=== PATIENT | female | born 1960 | race Caucasian/White ===

== ENCOUNTER → 2021-02-27 10:41 | Outpatient (CLI) | payer OTHER, SELFPAY ==
[2021-02-27 12:16] LABS: Absolute Lymphocyte Count 1.39 X10^3/uL (0.83-4.51); Absolute Neutrophil Count 3.4 X10^3/uL (2.0-7.7); Basophil# 0.05 X10^3/uL; Basophil% 0.9 % (0-1); Eosinophil# 0.08 X10^3/uL; Eosinophils% 1.5 % (0-5); Hematocrit 40.6 % (37-47); Hemoglobin 13.3 g/dL (12.0-15.0); Lymphocyte # 1.39 X10^3/ul (0.83-4.51); Lymphocyte % 25.4 % (19-41); Mean Corp Hgb Conc 32.8 g/dL (32-36); Mean Corpuscular Hgb 29.4 pg (27.0-32.0); Mean Corpuscular Volume 89.6 fL (81-99); Mean Platelet Vol. 10.1 fl (6.2-12.0); Monocyte# 0.59 X10^3/uL; Monocyte% 10.8 % (0-10); NRBC Flagged by Analyzer 0 % (0-5); Neutrophil # 3.36 X10^3/uL (2.7-7.7); Neutrophil % 61.2 % (47-70); Platelet Count 299 K/mm3 (150-450); RBC Distribution Width SD 39.3 fl (35.1-43.9); Red Blood Count 4.53 M/mm3 (4.2-5.4); White Blood Count 5.5 K/mm3 (4.4-11.0)
[2021-02-27 12:30] LABS: PTHIN 27.6 pg/mL (18.4-80.1)
[2021-02-27 12:39] LABS: ALB/GLOB Ratio 1.1 RATIO (0.9-2.4); AST(SGOT) 11 U/L (15-37); Alanine Aminotransfer ALT/SGPT 31 U/L (13-56); Albumin, Serum 4.1 g/dL (3.2-5.0); Alkaline Phosphatase 58 U/L (45-117); Anion Gap 6 (5-15); BUN 20 mg/dL (7-18); BUN/Creat Ratio 17.7 RATIO (10-20); Calcium,Total 9.1 mg/dL (8.5-10.1); Chloride 100 mmol/L (98-107); Creatinine, Serum 1.13 mg/dL (0.55-1.02); EST Glomerular Filtration Rate 53 mL/min (>60); Est Glom Filt Rate - Afr Amer 64 mL/min (>60); Globulin 3.6 g/dL (2.2-4.2); Glucose 91 mg/dL (74-106); Potassium 3.9 mmol/L (3.5-5.1); Protein, Total 7.7 g/dL (6.4-8.2); Sodium Level 137 mmol/L (136-145); T4 Free Direct 1.15 ng/dL (0.76-1.46); Thyroid Stim Hormone (TSH) 2.54 uIU/mL (0.358-3.74)
[2021-02-28 20:38] LABS: Anti-Thyroglobulin AB < 1.0 IU/mL (0.0-0.9); Thyroglobulin, Serum Qt. 36.5 ng/mL (1.5-38.5); Thyroid Peroxidase AB 14 IU/mL (0-34)
== END ==
PROVIDERS: PCP Internal Medicine; Referring Provider Physician Assistant; Visit Provider Physician Assistant
DX: L80 Vitiligo (principal); D18.01 Hemangioma of skin and subcutaneous tissue
CPT/HCPCS: 36415; 80053; 83970; 84432; 84439; 84443; 85025; 86376; 86800

== ENCOUNTER → 2024-04-06 | Outpatient (CLI) | payer OTHER, SELFPAY ==
--- NOTE | 2024-04-06 | EGD_PTH ---
PATIENT: TREVER ALLISON LOC: [facility] U#:[id number] AGE/SX: 63/F ROOM: RE04/06/[address]: Dr. Robinson Rossi MD : 1960 BED: DIS: 04/06/2024 SPEC #: [id number] RECD: 04/07/24 08:21 STATUS: ERI RECyndi #: [id number] BOBBY: 04/06/24 00:[address]: Robinson Rossi DEPT: SURGICAL PATHOLOGY RECD BY: Osiel Ram ENTERED: 04/07/24 08:23 SP TYPE: EGD BIOPSY OT DR: Dr. Lesia Barragan MD Tissues: A - Duodenum, NOS B - Gastric mucous membrane C - Gastric mucous membrane E - Esophagus, NOS F - Esophagus, NOS Procedures: Surgery Specimen Level IV HEADER OPERATION: EGD PRE-OP DIAGNOSIS: Epigastric pain, heartburn TISSUE SUBMITTED: A- Duodenal biopsy, B- Antrum biopsy, C- Fundic gland polyp, D- Distal esophagus biopsy, E- Mid esophageal biopsy MICROSCOPIC DIAGNOSIS A- Duodenal biopsy: Fragments of duodenal mucosa, no pathologic diagnosis. B- Antrum biopsy: Mild gastritis. See microscopic description and comment. C- Fundic gland polyp, biopsy: Fundic gland polyp. D- Distal esophagus biopsy: Fragments of squamous mucosa with congestion and mild chronic inflammation. E- Mid esophageal biopsy: Fragments of benign squamous epithelium. 04/10/2024 COMMENT B. The results of immunohistochemistry for Helicobacter pylori will be reported separately ([id number]). MICROSCOPIC DESCRIPTION Slides are reviewed. The specimen shows fragments of gastric mucosa with chronic inflammatory cell infiltrates in the lamina propria consisting of lymphocytes and plasma cells, consistent with mild chronic gastritis. GROSS DESCRIPTION A. Received in fixative is one container labeled with the patient's name and designated Duodenal biopsy. The specimen consists of multiple irregular fragments of light zheng soft tissue that in aggregate measure 0.5 x 0.5 x 0.1 cm. The specimen is totally submitted in one cassette. B. Received in fixative is one container labeled with the patient's name and designated Antral biopsy. The specimen consists of one irregular fragment of light zheng soft tissue that measures 0.2 x 0.1 x 1.0 cm. The specimen is totally submitted in one cassette. C. Received in fixative is one container labeled with the patient's name and designated Fundic gland polyp. The specimen consists of one irregular fragment of light zheng soft tissue that measures 0.2 x 0.1 x 0.5 cm. The specimen is totally submitted in one cassette. D. Received in fixative is one container labeled with the patient's name and designated Distal esophagus biopsy. The specimen consists of multiple irregular fragments of light zheng soft tissue that in aggregate measure 0.2 x 0.1 x 1.0 cm. The specimen is totally submitted in one cassette. E. Received in fixative is one container labeled with the patient's name and designated Mid esophageal biopsy. The specimen consists of two irregular fragment of light zheng soft tissue that in aggregate measure 0.2 x 0.1 x 0.5 cm. The specimen is totally submitted in one cassette. 04/07/2024 TC:3 CPT:90160q7
--- NOTE | 2024-04-06 | IMM_PTH ---
PATIENT: TREVER ALLISON LOC: [facility] U#:[id number] AGE/SX: 63/F ROOM: RE04/06/[address]: Dr. Robinson Rossi MD : 1960 BED: DIS: 04/06/2024 SPEC #: [id number] RECD: 04/07/24 09:53 STATUS: ERI REQ #: [id number] BOBBY: 04/06/24 00:[address]: Robinson Rossi DEPT: IMMUNOHISTOCHEMISTRY RECD BY: Osiel Ram ENTERED: 04/07/24 09:53 SP TYPE: IMMUNO OTHR DR: Dr. Lesia Barragan MD Tissues: B - Gastric mucous membrane Procedures: H Pylori (initial) PHYSICIAN & INSTITUTION [place] [id number] SPECIMEN INFORMATION: Tissue Source: B- Antrum biopsy Clinical Info: Epigastric pain, heartburn Specimen Number: [id number] CPT code: 49604 METHODOLOGY: Deparaffinized sections of prefer/formalin-fixed tissue or PAP/DQ stained slides are incubated with monoclonal/polyclonal antibodies/oligonucleotide probes. Localization is made via biotin free immunoperoxidase method. Appropriate controls are performed and reacted as expected. Results on target cell population are indicated in the following table: RESULTS: ANTIBODY / CLONE RESULT Block B H Pylori (polyclonal) negative These tests were developed and their performance characteristics determined by [facility]. They may not have been cleared or approved by the U.S. Food and Drug Administration. The FDA has determined that such clearance or approval is not necessary. The above immunohistochemical/dualISH markers are ordered and reviewed by the Pathologist. INTERPRETATION: B. Antrum, biopsy: Negative for Helicobacter pylori organisms. SJ:emelyn 04/11/24
== END | disposition home or self-care (01) ==
LOC: LABSPEC 15:21
PROVIDERS: PCP Internal Medicine; Referring Provider Surgery; Visit Provider Surgery
DX: K29.70 Gastritis, unspecified, without bleeding (principal); K31.7 Polyp of stomach and duodenum
CPT/HCPCS: 88305; 88342

== ENCOUNTER 2025-03-26 17:37 | Emergency (ER) | payer OTHER, SELFPAY ==
[2025-03-26 17:38] VITALS: BP 138/67; PULSE 76; RESP 18; TEMP 36.1; O2SAT 99; BMI 22.8
--- NOTE | 2025-03-26 18:12 | EKG12_ITS ---
Test Reason : DYSRHYTHMIA Blood Pressure : */* mmHG Vent. Rate : 67 BPM Atrial Rate : 67 BPM P-R Int : 146 ms QRS Dur : 80 ms QT Int : 434 ms P-R-T Axes : 68 12 63 degrees QTcB Int : 458 ms Normal sinus rhythm Possible Left atrial enlargement Borderline ECG Confirmed by Jeremy Escalante ([id number]), news copy editor KINGA TEMPLETON ([id number]) on 03/28/2025 11:34:28 AM Referred By: ER Confirmed By: Jeremy Escalante
--- NOTE | 2025-03-26 18:12 | CT_ITS ---
PROCEDURE: ABDOMEN/PELVIS W IV CONT ONLY 03/26/2025 REASON FOR EXAM: RUQ, RIGHT FLANK PAIN TECHNIQUE: Procedure Code: [id number] Modality: CT Procedure: ABDOMEN/PELVIS W IV CONT ONLY Coronal and Sagittal reconstruction series were provided. CONTRAST: 100 cc of Isovue 370 One or more dose reduction techniques were used (e.g., Automated exposure control, adjustment of the mA and/or kV according to patient size, use of iterative reconstruction technique. COMPARISON: None available. FINDINGS: Lung bases: Unremarkable. Liver: Normal size. No mass. Gallbladder: Unremarkable. No biliary ductal dilatation. Spleen: Normal size. Pancreas: Normal size without evidence of mass surrounding inflammation or ductal dilation. Adrenals: No adrenal masses. Kidneys: Left renal cyst measures 9 mm. No renal calculi or hydronephrosis bilaterally. Bladder: Unremarkable. Reproductive Organs: Prior hysterectomy. Adnexal regions are unremarkable. Bowel: Colonic diverticulosis without diverticulitis. No bowel obstruction. Appendix: Normal. Lymph nodes: Unremarkable. Vasculature: The abdominal aorta and IVC are normal. Peritoneum / Retroperitoneum: No free fluid or air. Bones: Degenerative changes of the spine. No acute fractures. CT/Abdomen/Pelvis W IV Cont ONLY IMPRESSION: NO ACUTE FINDINGS AT THE ABDOMEN OR PELVIS ON CONTRAST-ENHANCED CT. Reading Location[facility]
--- NOTE | 2025-03-26 18:12 | US_ITS ---
PROCEDURE: US GALLBLADDER 03/26/2025 REASON FOR EXAM: PAIN TECHNIQUE: Procedure Code: USGB Modality: US Procedure: GALLBLADDER COMPARISON: Abdominal CT same day 03/26/2025. FINDINGS: Liver: Grossly normal in size with homogeneous echotexture. Mild steatosis. Gallbladder: Normal. No stones, sludge, wall thickening or tenderness. Common bile duct: Normal measuring up to 0.3 cm diameter. Pancreas: Visualized portions are sonographically unremarkable. Other: Visualized right kidney is unremarkable. No right upper quadrant ascites. US/Gallbladder IMPRESSION: No cholelithiasis or biliary ductal dilatation. Mild hepatic steatosis. Reading Location: [id number]
--- NOTE | 2025-03-26 18:15 | EDS_ITS ---
HPI HPI - GI History of Present Illness Chief Complaint: Abd Pain Narrative Narrative: Patient is a 64-year-old female presenting to the emergency department for right upper quadrant pain that is radiating to her right sided back. Patient states that she has had the pain for the past week. She states that it is constant. She endorses some nausea with no vomiting. Denies chest pain or shortness of breath. Denies any fever or chills. States she has had diarrhea but this is chronic for her. She denies any dysuria or hematuria. States that she had a kidney stone in the past and this does not feel similar. States that the right upper quadrant pain is unchanged with food. Unchanged with positional changes. Went to urgent care prior to this and they got a urine sample that showed blood and sent him here for evaluation. [facility] Medical History Back pain Home Medications ?Medication ?Instructions ?Recorded ?Last Taken ?Type Lactobacillus acidophilus 20 100 mmu cells PO DAILY 03/26/25 History billion cell capsule (Florajen Acidophilus) citalopram 20 mg tablet 20 mg PO DAILY 03/26/2512/11 History cyclosporine 0.05 % eye drops in a 1 drp ophthalmic (e ye) BID 03/26/25 03/26/25 History dropperette (Restasis) estradiol 10 mcg vaginal tablet 10 mcg vaginal .COMPLE X 03/26/25 03/24/25 History fexofenadine 180 mg tablet 180 mg PO DAILY PRN allergi es 03/26/25 Unknown History (Bre Allergy) fluticasone propionate 50 2 spray intranasal DAILY 12/1103/26/25 History mcg/actuation nasal spray,suspension (Allergy Relief (fluticasone)) multivit-iron 18 mg-folic acid 400 1 tab PO DAILY 12/1103/26/25 History mcg-calcium 500 mg-minerals tablet (Daily Multiple For Women) pantoprazole 40 mg tablet,delayed 40 mg PO BID 5 03/26/25 History release phenazopyridine 200 mg tablet 200 mg PO TID PRN pain 1 05/27/24 Unknown History rizatriptan 10 mg disintegrating 10 mg PO Q2H PRN migr evy headache 03/26/25 Unknown History tablet triamterene 37.5 1 cap PO DAILY 03/26/25 12/0 12/11 History mg-hydrochlorothiazide 25 mg capsule Allergy/AdvReac Type Severity Reaction Status Date / Time No Known Allergies Allergy Verified 03/26/25 17:39 Social History Smoking Status: Never smoker ROS ROS ED ROS Narrative see HPI EXAM Physical Exam Narrative Exam Narrative: Vital signs: Reviewed General: Alert and orientedx3. No acute distress. Well appearing. Nontoxic. HEENT: Head is normocephalic and atraumatic, sinuses nontender, pupils equal round and reactive. Nares are patent. Oropharynx and throat exams normal. Neck: Supple without lymphadenopathy nontender Cardiovascular: Regular rate and rhythm, no murmurs. No rubs or gallops. Normal S1 and S2 Respiratory: Clear to auscultation bilaterally. No wheezes, rales, rhonchi Abdominal: Soft and nontender to palpation. Negative small sign. Normal bowel sounds. No guarding or rebound. Nonsurgical abdomen. No CVA tenderness to palpation. Extremities: No tenderness. No bruising. Normal range of motion. Normal sensation. Skin: No rash or redness. The rest of the physical exam is unremarkable Const Vital Signs: 03/26/25 17:38 03/26/25 19:38 03/26/25 20:15 Temperature 96.9 F L 97 F L Temperature Source Temporal Pulse Rate 76 80 66 Respiratory Rate 18 16 18 Blood Pressure 138/67 H 122/66 H Blood Pressure Mean 90 84 Pulse Ox 99 100 Oxygen Delivery Method Room Air Room Air MDM MDM MDM Narrative Medical decision making narrative: Patient is a 64-year-old female presenting to the emergency department for right upper quadrant pain that radiates to her right sided back for the past week. Patient was seen and examined. Vitals are stable. Patient resting bed comfortably no acute distress. Differential includes but is not limited to: Biliary colic, cholecystitis, choledocholithiasis, nephrolithiasis, musculoskeletal, less likely ACS, aortic pathology. No chest pain or SOB. Unlikely RLL pneumoina given the above, no cough or fever. Patient was offered analgesic and antiemetic, she declined at this time. Labs, RUQ US and CT abd pelvis ordered. EKG shows normal sinus rhythm at a rate of 67 with no ischemic changes. No dysrhythmia. CBC with no leukocytosis and a normal hemoglobin. CMP with no significant abnormalities. Lipase within normal limits. CT abdomen pelvis shows no acute abnormalities. Right upper quadrant ultrasound with no cholelithiasis or biliary ductal dilatation. Mild hepatic steatosis. Patient and at bedside were updated on the negative workup. Likely musculoskeletal in nature versus biliary colic however I think biliary colic is less likely given it is unchanged with p.o. intake. Patient discharged from the Emergency Department. I do not feel that the patient's evaluation reveals any acute reason for admission at this time. I instructed them to either follow-up with their primary care physician or promptly return to the Emergency Department for reevaluation should symptoms worsen or new symptoms develop. I explained what symptoms would indicate the need to return to the emergency department. Shared decision making was used. The patient voiced understanding of the treatment plan and is agreeable with it. Clinical impression: Right upper quadrant abdominal pain History & Record Review Discussion w/independent historian: Patient Lab Data Attestation: I reviewed the patient's lab results. Labs: Laboratory Results - last 24 hr 03/26/25 03/26/25 17:49 19:33 WBC 7.7 RBC 4.43 Hgb 13.0 Hct 39.7 MCV 89.6 MCH 29.3 MCHC 32.7 RDW Std Deviation 40.0 RDW Coeff of Julisa 12.2 Plt Count 321 MPV 10.1 Immature Gran % (Auto) 0.400 Neut % (Auto) 61.0 Lymph % (Auto) 26.8 Wilcox % (Auto) 9.2 Eos % (Auto) 1.6 Baso % (Auto) 1.0 Absolute Neuts (auto) 4.7 Absolute Lymphs (auto) 2.07 Nucleated RBC % 0 Sodium 139 Potassium 3.6 Chloride 100 Carbon Dioxide 28.7 Anion Gap 10 BUN 12 Creatinine 0.99 Estim Creat Clear Calc 53.02 Est GFR (MDRD) Non-Af 65 BUN/Creatinine Ratio 11.9 Glucose 92 Calcium 9.4 Total Bilirubin 0.89 AST 21 ALT 20 Alkaline Phosphatase 52 Total Protein 7.3 Albumin 4.7 Globulin 2.6 Albumin/Globulin Ratio 1.8 Lipase 47 Urine Color Straw Urine Clarity Clear Urine pH 7.0 Ur Specific [place] 1.005 Urine Protein Negative Urine Glucose (UA) Normal Urine Ketones Negative Urine Occult Blood Negative Urine Nitrite Negative Urine Bilirubin Negative Urine Urobilinogen Normal Ur Leukocyte Esterase Negative Urine RBC 0-5 SEEN Urine WBC 0-5 SEEN Ur Squamous Epith Cells 0-5 SEEN Urine Bacteria 0 SEEN Urine Mucus 0 SEEN Radiography Diagnostic Testing: Clinical Impression(s) from Imaging Studies Abdomen/Pelvis CT 03/26/25 18:12 IMPRESSION: NO ACUTE FINDINGS AT THE ABDOMEN OR PELVIS ON CONTRAST-ENHANCED CT. Reading [facility] Gallbladder Ultrasound 03/26/25 18:12 IMPRESSION: No cholelithiasis or biliary ductal dilatation. Mild hepatic steatosis. Reading Location: [id number] Discharge Plan Triage Chief Complaint: Abd Pain Other Complaint: Back ED Provider: Ruth Jenkins Dx/Rx/DC Orders Clinical Impression: Continuous RUQ abdominal pain Instructions: ED Abdominal Pain Unkn Cause Fem Prescriptions: No Action triamterene-hydrochlorothiazid 37.5-25 mg capsule 1 cap PO DAILY citalopram 20 mg tablet 20 mg PO DAILY estradiol 10 mcg tablet 10 mcg vaginal .COMPLEX Rx Instructions: 10 mcg vaginally 2XWEEK; rizatriptan 10 mg tablet,disintegrating 10 mg PO Q2H PRN (Reason: migraine headache) pantoprazole 40 mg tablet,delayed release (DR/EC) 40 mg PO BID cyclosporine [Restasis] 0.05 % dropperette 1 drp ophthalmic (eye) BID phenazopyridine 200 mg tablet 200 mg PO TID PRN (Reason: pain) fluticasone propionate [Allergy Relief (fluticasone)] 50 mcg/actuation spray ,suspension 2 spray intranasal DAILY Rx Instructions: administer into each nostril Florajen Acidophilus 20 billion cell capsule 100 mmu cells PO DAILY fexofenadine [Bre Allergy] 180 mg tablet 180 mg PO DAILY PRN (Reason: allergies) Daily Multiple For Women 18 mg iron-400 mcg-500 mg Ca tablet 1 tab PO DAILY Primary Care Provider: Lesia Barragan Referrals: Lesia Barragan MD [Primary Care Provider, Internal Medicine] - As soon as possible Activity Restrictions/Additional Instructions: Your evaluation in the Emergency Department did not reveal any acute reason for admission. However, I want to emphasize that you may be early in the course of a disease process or illness even if it is not present. For this reason you should follow-up within 24 hours for reevaluation with either your primary care physician or if necessary back here in the Emergency Department. You should return to the Emergency Department immediately if your symptoms worsen or new symptoms develop. Print Language: Belarusian Disposition Disposition: Home, Self Care Discharge Date/Time: 03/26/25 20:16
[2025-03-26 18:41] LABS: Hematocrit 39.7 % (37-47); Hemoglobin 13.0 g/dL (12.0-15.0); Immature Granulocytes Count 0.030 X10^3/uL (0.0-0.0); Mean Corp Hgb Conc 32.7 g/dL (32-36); Mean Corpuscular Volume 89.6 fL (81-99); Mean Platelet Vol. 10.1 fl (6.2-12.0); NRBC Flagged by Analyzer 0 % (0-5); Platelet Count 321 K/mm3 (150-450); RBC Distribution Width CV 12.2 % (11.6-14.6); RBC Distribution Width SD 40.0 fl (35.1-43.9); Red Blood Count 4.43 M/mm3 (4.2-5.4); White Blood Count 7.7 K/mm3 (4.4-11.0)
[2025-03-26 18:44] LABS: AST(SGOT) 21 U/L (<=31); Alanine Aminotransfer ALT/SGPT 20 U/L (<=34); Albumin, Serum 4.7 g/dL (3.4-4.8); Alkaline Phosphatase 52 U/L (35-104); Anion Gap 10 (5-15); BUN 12 mg/dL (4-19); BUN/Creat Ratio 11.9 RATIO (10-20); Calcium,Total 9.4 mg/dL (7.6-11.0); Carbon Dioxide 28.7 mmol/L (21.0-32.0); Chloride 100 mmol/L (98-108); Estimated Creatinine Clearance 53.02 ml/min (50-250); Globulin 2.6 g/dL (2.2-4.2); Glucose 92 mg/dL (70-99); Lipase 47 U/L (13-75); Potassium 3.6 mmol/L (3.3-5.1)
[2025-03-26 19:37] LABS: Mucous, Urine 0 SEEN /hpf (<or=2+)
[2025-03-26 19:38] VITALS: PULSE 80; RESP 16
[2025-03-26 19:50] LABS: Color, Urine Straw (Yellow); Glucose, Dipstick Normal (Normal); Ketone-Dipstick Negative (Negative); Leukocyte Esterase-Dipstick Negative /ul (Negative); Nitrite-Dipstick Negative (Negative); Occult Blood-Urine Negative /ul (Negative); Protein-Dipstick Negative (Negative); Specific Gravity, Urine 1.005 (1.002-1.030); Urine Bilirubin Dipstick Negative (Negative)
[2025-03-26 20:15] VITALS: BP 122/66; PULSE 66; RESP 18; TEMP 36.1; O2SAT 100
[2025-03-26 20:23] LABS: Squamous Epithelial Cells - UA 0-5 SEEN /hpf (5-10)
[2025-03-26 20:24] LABS: Red Blood Cells-Urine 0-5 SEEN /hpf (0-5)
== END 2025-03-26 20:16 | disposition home or self-care (01) ==
PROVIDERS: Emergency Provider Student in an Organized Health Care Education/Training Program; PCP Internal Medicine; Visit Provider Student in an Organized Health Care Education/Training Program
DX: R10.11 Right upper quadrant pain (principal); K52.9 Noninfective gastroenteritis and colitis, unspecified; K76.0 Fatty (change of) liver, not elsewhere classified; Z87.442 Personal history of urinary calculi
CPT/HCPCS: 74177; 76705; 80053; 81001; 83690; 85025; 93005; 99284; Q9967; A4216